=== PATIENT | female | born 1970 | race Caucasian/White ===

== ENCOUNTER 2019-04-08 18:31 | Emergency (ER) | payer OTHER ==
--- NOTE | 2019-04-08 20:11 | ED ---
Complex/Multi-Sys Presentation - HPI Summary HPI Summary: Patient is a 49 y/o F presenting to ED with complaints of sore throat, rhinorrhea, post-nasal drip, and DIAS. She states that she has been "sick" for the past week, noting that sore throat onset first, then rhinorrhea and post- nasal drip. Today, [facility] She notes that it was hot outside and around 1400, she began to experience a frontal DIAS. Patient later took a nap and woke up with a "severe" DIAS that the patient rated 10/10. She endorses Hx of DIAS but states that this DIAS was more severe than previously. She endorses some nausea and photophobia at the time but none at present. Patient states that she was evaluated at urgent care and was sent to ED for further evaluation. Patient currently rates present DIAS pain 6 /10. Patient notes that she had taken flonase and ibuprofen earlier today. Fever is denied. PMHx of HTN, patient is on lisinopril, which she reports taking today. PSHx of caesarean section, hysterectomy. FMHx of cardiac disease, cervical cancer. Home medications and allergies are reviewed. - History Of Current Complaint Chief Complaint: EDHeadache Time Seen by Provider: 04/08/19 20:04 Hx Obtained From: Patient Onset/Duration: Lasting Hours - DIAS, Lasting Weeks - sore throat, post-nasal drip , rhinorrhea, Still Present, Resolved - nausea, photophobia Timing: Constant, Hours - DIAS, Weeks - sore throat, post-nasal drip, rhinorrhea Severity Currently: Severe Severity Initially: Moderate Location: Pain At: - frontal head, sore throat Character: Typical Headache Aggravating Factor(s): bright light Alleviating Factor(s): nothing Associated Signs And Symptoms: Positive: Headache, Nausea, Other - sore throat, rhinorrhea, post-nasal drip; photophobia since resolved. Negative: Fever - Allergies/Home Medications Allergies/Adverse Reactions: Allergies Allergy/AdvReac Type Severity Reaction Status Date / Time No Known Allergies Allergy Verified 04/08/19 18:39 Home Medications: Home Medications NK [No Home Medications Reported] 04/08/19 [History Confirmed 04/08/19] PMH/Surg Hx/FS Hx/Imm Hx Cardiovascular History: Reports: Hx Hypertension Sensory History: Denies: Hx Legally Blind, Hx Deafness Opthamlomology History: Denies: Hx Legally Blind EENT History: Denies: Hx Deafness Neurological History: Reports: Hx Headaches - Surgical History Surgery Procedure, Year, and Place: , hysterectomy Infectious Disease History: No Infectious Disease History: Denies: Traveled Outside the [place] in Last 30 Days - Family History Known Family History: Positive: Cardiac Disease, Other - FMHx of cervical cancer - Social History Alcohol Use: Rare Substance Use Type: Reports: None Smoking Status (MU): Never Smoked Tobacco Review of Systems Negative: Fever Positive: Photophobia - since resolved ENT: Other - POSITIVE - POST NASAL DRIP Positive: Sore Throat, Nasal Discharge - rhinorrhea Positive: Nausea - since resolved Positive: Headache All Other Systems Reviewed And Are Negative: Yes Physical Exam - Summary Physical Exam Summary: VITAL SIGNS: Reviewed. GENERAL: Patient is a well-developed and nourished female who is lying comfortable in the stretcher. Patient is not in any acute respiratory distress. HEAD AND FACE: No signs of trauma. No ecchymosis, hematomas or skull depressions. No sinus tenderness. EYES: PERRLA, EOMI x 2, No injected conjunctiva, no nystagmus. EARS: Hearing grossly intact. Ear canals and tympanic membranes are within normal limits. MOUTH: Oropharynx within normal limits. NECK: Supple, trachea is midline, no adenopathy, no JVD, no carotid bruit, no c- spine tenderness, neck with full ROM CHEST: Symmetric, no tenderness at palpation LUNGS: Clear to auscultation bilaterally. No wheezing or crackles. CVS: Regular rate and rhythm, S1 and S2 present, no murmurs or gallops appreciated. ABDOMEN: Soft, non-tender. No signs of distention. No rebound no guarding, and no masses palpated. Bowel sounds are normal. EXTREMITIES: FROM in all major joints, no edema, no cyanosis or clubbing. NEURO: Alert and oriented x 3. No acute neurological deficits. Speech is normal and follows commands. No meningismus. SKIN: Dry and warm Triage Information Reviewed: Yes Vital Signs On Initial Exam: Initial Vitals Temp Pulse Resp BP Pulse Ox 98.4 F 80 18 150/99 98 04/08/19 18:35 04/08/19 18:35 04/08/19 18:35 04/08/19 18:35 04/08/19 18:35 Vital Signs Reviewed: Yes Diagnostics - Vital Signs Vital Signs Temp Pulse Resp BP Pulse Ox 04/08/19 19:47 81 100 04/08/19 19:45 81 151/96 99 04/08/19 18:35 98.4 F 80 18 150/99 98 - Laboratory Lab Statement: Any lab studies that have been ordered have been reviewed, and results considered in the medical decision making process. Complex Multi-Symp Course/Dx Course Of Treatment: Patient is a 49 y/o F presenting to ED with complaints of sore throat, rhinorrhea, post-nasal drip, and DIAS. She states that she has been "sick" for the past week, noting that sore throat onset first, then rhinorrhea and post-nasal drip. Today, [facility] She notes that it was hot outside and around 1400, she began to experience a frontal DIAS. Patient later took a nap and woke up with a "severe" DIAS that the patient rated 10/10. She endorses Hx of DIAS but states that this DIAS was more severe than previously. She endorses some nausea and photophobia at the time but none at present. Patient states that she was evaluated at urgent care and was sent to ED for further evaluation. Patient currently rates present DIAS pain 6/10. Patient notes that she had taken flonase and ibuprofen earlier today. Fever is denied. PMHx of HTN, patient is on lisinopril, which she reports taking today. On physical exam, no meningismus is noted. Patient received Fioricet, 2 tabs, and was discharged to home, patient agreeable with this. - Diagnoses Provider Diagnoses: Headache Discharge - Sign-Out/Discharge Documenting (check all that apply): Patient Departure - discharge Patient Received Moderate/Deep Sedation with Procedure: No - Discharge Plan Condition: Stable Disposition: HOME Patient Education Materials: Acute Headache (ED) Referrals: Care [facility] [Outside] - 3 Days Additional Instructions: PLEASE RETURN TO THE ED IMMEDIATELY FOR WORSENING OR CONCERNING SYMPTOMS. FOLLOW UP WITH YOUR PRIMARY CARE PHYSICIAN WITHIN THREE DAYS. - Attestation Statements Document Initiated by Scribe: Yes Documenting Scribe: RONALD DE JESUS Provider For Whom Scribe is Documenting (Include Credential): ZULEYKA MOISE MD Scribe Attestation: RONALD Hicks, scribed for ZULEYKA MOISE MD on 04/08/19 at 2039. Status of Scribe Document: Ready
[2019-04-08] MEDS ORDERED: Butalb/Acetamin/Caff TAB* 1 TAB PO ONE (20:14)
[2019-04-08 20:51] VITALS: BP 157/96
== END 2019-04-08 20:45 | disposition home or self-care (01) ==
LOC: ED 18:31
DX: R51 Headache (principal); R11.0 Nausea; J02.9 Acute pharyngitis, unspecified; J34.89 Other specified disorders of nose and nasal sinuses; I10 Essential (primary) hypertension
CPT/HCPCS: 99282; A9270-GY